=== PATIENT | male | born 1965 | race Caucasian/White ===

== ENCOUNTER 2020-06-05 10:42 | Emergency (ER) | payer OTHER, SELFPAY ==
[~2020-06-05] VITALS: Ht 165.1 cm; Wt 77.6 kg
[2020-06-05 10:42] VITALS: Ht 165.1 cm; Wt 77.6 kg
[2020-06-05 12:11] VITALS: BP 118/75
== END 2020-06-05 12:11 | disposition home or self-care (01) ==
LOC: ED 10:42
DX: R50.9 Fever, unspecified (principal); M54.2 Cervicalgia; M54.9 Dorsalgia, unspecified; J02.9 Acute pharyngitis, unspecified; R05 Cough; R19.7 Diarrhea, unspecified; R60.0 Localized edema; I10 Essential (primary) hypertension; E78.00 Pure hypercholesterolemia, unspecified; Z89.021 Acquired absence of right finger(s); Z20.828 Contact with and (suspected) exposure to other viral communicable diseases
CPT/HCPCS: Q0092; U0003-CS